=== PATIENT | female | born 1955 ===

== ENCOUNTER 2023-02-02 14:16 | Outpatient (CLI) | payer OTHER ==
[~2023-02-02 14:16] MED LIST: DICLOFENAC POTA50 MG PO; ZANAFLEX2 MG PO
== END 2023-02-02 14:18 | disposition home or self-care (01) ==
LOC: RAD 14:16
PROVIDERS: ATTEND Internal Medicine Pulmonary Disease
DX: J45.909 Unspecified asthma, uncomplicated (principal)

== ENCOUNTER 2023-02-11 08:42 | Outpatient (CLI) | payer OTHER | END 2023-02-11 08:47 | disposition home or self-care (01) | LOC: RX STUDY 08:42 | DX: R10.9 Unspecified abdominal pain (principal) ==